=== PATIENT | female | born 1950 | race Caucasian/White ===

== ENCOUNTER 2017-03-26 18:34 | Emergency (ER) | payer MEDICARE, OTHER ==
[~2017-03-26] VITALS: Ht 167.6 cm; Wt 80.0 kg
[~2017-03-26 18:34] MED LIST: AMIT10 PO; ATOR20TA42 PO; CALTTAB5 PO; CYMB60CA PO; LORA0.5T PO; LYRI75CA PO; METO50TA PO; PREG75 PO; SUMA6P IJ; TOVI8TAB PO; [UNRECOGNIZED DRUG - OTHER] PO
[2017-03-26 18:38] VITALS: BP 137/79; PULSE 54; RESP 16; TEMP 97.7; O2SAT 99
--- NOTE | 2017-03-26 18:49 | PD ---
Physical Exam Time Seen by Provider: 18:48 Narrative 66 y/o female W/ abdominal pain, nausea for one day. vital signs reviewed. Seen at triage desk. Awaiting bed placement. Data Data Last Documented VS Vital Signs Date Time Temp Pulse Resp B/P Pulse Ox O2 Delivery O2 Flow Rate FiO2 03/26/17 18:38 97.7 54 16 137/79 99 MDM Medical Record Reviewed: Yes Supervised Visit with ELIA: No Swapnil Oakes March 26, 2017 18:49
== END 2017-03-26 20:10 | disposition left against medical advice (07) ==
LOC: NED 18:34
DX: R10.9 Unspecified abdominal pain (principal); R11.0 Nausea
CPT/HCPCS: 99281